=== PATIENT | male | born 1945 | race Caucasian/White ===

== ENCOUNTER 2016-08-31 11:42 | Day surgery (SDC) | payer OTHER, BC ==
[~2016-08-31] VITALS: Ht 172.7 cm; Wt 72.6 kg
[2016-08-31 12:24] VITALS: O2SAT 95
[2016-08-31] MEDS ORDERED: SEVOFLURANE 15 MIN GAS INH ONE (12:24)
[2016-08-31] MEDS ORDERED: METOCLOPRAMIDE HCL 10 MG/2 ML VIAL IVP ONE (12:24)
[2016-08-31] MEDS ORDERED: MIDAZOLAM HCL 5 MG/5 ML VIAL IVP ONE (12:24)
[2016-08-31] MEDS ORDERED: PROPOFOL 200MG/ 20ML VIAL (DIPRIVAN) IV ONE (12:24)
[2016-08-31] MEDS ORDERED: fentaNYL CITRATE/PF 100 MCG/2 ML AMP IVP ONE (12:24)
[2016-08-31 12:28] LABS: BASOPHILS % (AUTO) 0.6 % (0.0-2.0); EOSINOPHILS # (AUTO) 0.2 K/uL (0.0-0.4); HEMATOCRIT 45.9 % (36-54); HEMOGLOBIN 15.4 g/dL (14.0-18.0); LYMPHOCYTES # (AUTO) 1.9 K/uL (1.0-5.5); LYMPHOCYTES % (AUTO) 23.7 % (20.5-51.5); MEAN CORPUSCULAR HEMOGLOBIN 32 pg (27-31); MEAN CORPUSCULAR HGB CONC 34 % (32-36); MEAN CORPUSCULAR VOLUME 95 fL (79.0-98.0); MONOCYTES # (AUTO) 0.6 K/uL (0.0-1.0); NEUTROPHILS # (AUTO) 5.2 K/uL (1.8-7.7); NEUTROPHILS % (AUTO) 65.7 % (40.0-70.0); PLATELET COUNT (AUTO) 344 K/uL (130-430); RED BLOOD CELL COUNT(AUTO) 4.83 MIL/uL (4.2-6.2); RED CELL DISTRIBUTION WIDTH 11.6 % (9.0-15.0); WHITE BLOOD COUNT (AUTO) 7.9 K/uL (4.8-10.8)
[2016-08-31] MEDS ORDERED: LR 1,000 ML IV ONE (12:50)
[2016-08-31] MEDS ORDERED: NALBUPHINE HCL 10 MG/ML AMP IVP PRN (13:00)
[2016-08-31] MEDS ORDERED: fentaNYL CITRATE/PF 100 MCG/2 ML AMP IVP PRN (13:00)
[2016-08-31] MEDS ORDERED: ePHEDrine sulfate 50 MG/ML VIAL IVP PRN (13:00)
[2016-08-31] MEDS ORDERED: NALOXONE HCL 0.4 MG/ML AMP (NARCAN) IVP PRN (13:00)
[2016-08-31] MEDS ORDERED: DIPHENHYDRAMINE INJ 50 MG/ML VIAL IVP PRN (13:00)
[2016-08-31] MEDS ORDERED: ONDANSETRON HCL 4 MG/2 ML VIAL IVP PRN ×2 (13:00)
[2016-08-31 13:51] VITALS: BP 135/72; PULSE 63; RESP 18
== END 2016-08-31 14:25 | disposition home or self-care (01) ==
LOC: SDS 11:42
PROVIDERS: ATTEND Orthopaedic Surgery
DX: Z47.2 Encounter for removal of internal fixation device (principal); M54.5 Low back pain; E66.9 Obesity, unspecified
CPT/HCPCS: 20694; 36415; 85025; J2250; J2704; J2765; J3010; J7120

== ENCOUNTER 2022-09-03 10:00 | Emergency (ER) | payer OTHER, BC ==
[~2022-09-03] VITALS: Ht 172.7 cm; Wt 63.5 kg
[2022-09-03 10:13] VITALS: BP_SYST 96
--- NOTE | 2022-09-03 10:18 | NUR ---
Patient to ER bed 2 to gown for evaluation. Side rails up. Report given to SHANON WU.
--- NOTE | 2022-09-03 10:20 | NUR ---
PT BIB [facility] AWAKE AND ALERT AOX4. NO SOB OR DISTRESS. PT C/O HEAD ACHE, ABDOMINAL PAIN, N/V/D. PT STATES PAIN /. PT HAS HX OF BACK SX.
--- NOTE | 2022-09-03 10:21 | NUR ---
MD DR MONTERO AT BEDSIDE
[2022-09-03] MEDS ORDERED: NACL 0.9% 1,000 ML IV ONE (10:45)
[2022-09-03] MEDS ORDERED: ONDANSETRON HCL 4 MG/2 ML VIAL IVP ONE (11:00)
[2022-09-03] MEDS ORDERED: MORPHINE 4 MG INJ. 4 MG/ML VIAL IVP ONE (11:00)
--- NOTE | 2022-09-03 11:04 | NUR ---
PT TAKEN TO CT
[2022-09-03 11:12] LABS: BASOPHILS % (AUTO) 0.5 % (0.0-2.0); HEMOGLOBIN 14.5 g/dL (14.0-18.0); LYMPHOCYTES # (AUTO) 0.3 K/uL (1.0-5.5); LYMPHOCYTES % (AUTO) 3.7 % (20.5-51.5); MEAN CORPUSCULAR HEMOGLOBIN 32 pg (27-31); MEAN CORPUSCULAR HGB CONC 34 % (32-36); MEAN CORPUSCULAR VOLUME 96 fL (79.0-98.0); MONOCYTES # (AUTO) 0.4 K/uL (0.0-1.0); MONOCYTES % (AUTO) 5.4 % (1.7-9.3); NEUTROPHILS # (AUTO) 6.9 K/uL (1.8-7.7); NEUTROPHILS % (AUTO) 90.4 % (40.0-70.0); PLATELET COUNT (AUTO) 216 K/uL (130-430); RED BLOOD CELL COUNT(AUTO) 4.47 MIL/uL (4.2-6.2); RED CELL DISTRIBUTION WIDTH 13.5 % (9.0-15.0); WHITE BLOOD COUNT (AUTO) 7.7 K/uL (4.8-10.8)
[2022-09-03 11:36] LABS: ANION GAP 9 (5-15); CALCIUM 9.2 mg/dL (8.4-11.0); CHLORIDE 101 mmol/L (98-107); CREATININE 1.42 mg/dL (0.55-1.30); GLUCOSE 144 mg/dL (70-99); UREA NITROGEN, BLOOD 26 mg/dL (8-21)
[2022-09-03] MEDS ORDERED: ONDA8TAB60 PO (11:39)
[2022-09-03 11:40] LABS: ALANINE AMINOTRANSFERASE 27 U/L (12-78); ALBUMIN 3.7 g/dL (3.4-4.8); ASPARTATE AMINOTRANSFERASE 29 U/L (10-37); LIPASE 74 U/L (73-393); TOTAL BILIRUBIN 1.5 mg/dL (0.0-1.0)
[2022-09-03 12:14] VITALS: BP_SYST 135
--- NOTE | 2022-09-03 12:15 | NUR ---
Patient given written and verbal discharge instructions and verbalizes understanding. ER MD DR MONTERO discussed with patient the results and treatment provided. Patient in stable condition. ID arm band removed. IV catheter removed intact and dressing applied, no active bleeding. Rx of ZOFRAN given. Patient educated on pain management and to follow up with PMD. Pain Scale 2/10. Opportunity for questions provided and answered. Medication side effect fact sheet provided.
== END 2022-09-03 11:50 | disposition home or self-care (01) ==
LOC: SED 10:00
DX: R10.13 Epigastric pain (principal); R11.2 Nausea with vomiting, unspecified; R19.7 Diarrhea, unspecified; Z79.899 Other long term (current) drug therapy
CPT/HCPCS: 99285; 74176; 96374; 96375; 80053; 83690; 85025; 36415; 76376; J2405; J2270

== ENCOUNTER 2023-04-02 10:10 | Emergency (ER) | payer OTHER, BC ==
[~2023-04-02] VITALS: Ht 172.7 cm; Wt 64.9 kg
[~2023-04-02 10:10] MED LIST: ONDA8TAB60 PO
[2023-04-02 10:17] VITALS: BP_SYST 134; PULSE 74; RESP 18; TEMP 98.3; O2SAT 97
[2023-04-02] MEDS ORDERED: CEPH250C PO (10:29)
[2023-04-02] MEDS ORDERED: DIPHTH,PERTUSS(ACELL),TET VAC 0.5 ML VIAL (Tdap) I.M. ONE ×2 (10:45→10:47)
[2023-04-02 10:56] VITALS: BP_SYST 134; PULSE 74; RESP 18; TEMP 98.3; O2SAT 97
== END 2023-04-02 10:57 | disposition home or self-care (01) ==
LOC: SED 10:10
DX: S81.801A Unspecified open wound, right lower leg, initial encounter (principal); Z79.899 Other long term (current) drug therapy; X58.XXXA Exposure to other specified factors, initial encounter; Y93.89 Activity, other specified; Y92.89 Other specified places as the place of occurrence of the external cause; Y99.8 Other external cause status
CPT/HCPCS: 90715; 99283

== ENCOUNTER 2024-02-29 09:09 | Emergency (ER) | payer OTHER, BC ==
[~2024-02-29] VITALS: Ht 170.2 cm; Wt 65.8 kg
[~2024-02-29 09:09] MED LIST changes: +CEPH250C PO
[2024-02-29 09:19] VITALS: BP_SYST 137; PULSE 101; RESP 20; TEMP 100.2; O2SAT 100
[2024-02-29 10:07] LABS: BASOPHILS % (AUTO) 0.2 % (0.0-2.0); EOSINOPHILS % (AUTO) 0.1 % (0.0-4.0); HEMATOCRIT 39.2 % (36-54); HEMOGLOBIN 13.2 g/dL (14.0-18.0); LYMPHOCYTES # (AUTO) 0.2 K/uL (1.0-5.5); LYMPHOCYTES % (AUTO) 1.6 % (20.5-51.5); MEAN CORPUSCULAR HEMOGLOBIN 33 pg (27-31); MEAN CORPUSCULAR HGB CONC 34 % (32-36); MEAN CORPUSCULAR VOLUME 99 fL (79.0-98.0); MONOCYTES # (AUTO) 0.3 K/uL (0.0-1.0); NEUTROPHILS # (AUTO) 10.5 K/uL (1.8-7.7); NEUTROPHILS % (AUTO) 95.1 % (40.0-70.0); PLATELET COUNT (AUTO) 242 K/uL (130-430); RED BLOOD CELL COUNT(AUTO) 3.97 MIL/uL (4.2-6.2); RED CELL DISTRIBUTION WIDTH 12.1 % (9.0-15.0)
[2024-02-29] MEDS: NACL 0.9% 1,000 ML IV ONE (10:15)
[2024-02-29 10:18] LABS: ALANINE AMINOTRANSFERASE 23 U/L (12-78); ALBUMIN 3.6 g/dL (3.4-4.8); ANION GAP 6 (5-15); ASPARTATE AMINOTRANSFERASE 24 U/L (10-37); BILIRUBIN,DIRECT 0.2 mg/dL (0.0-0.3); CALCIUM 8.6 mg/dL (8.4-11.0); CARBON DIOXIDE 32 mmol/L (23-29); CHLORIDE 101 mmol/L (98-107); CREATININE 1.34 mg/dL (0.55-1.30); GLUCOSE 134 mg/dL (74-106); POTASSIUM 3.7 mmol/L (3.5-5.1); SODIUM SERUM 139 mmol/L (136-145); TOTAL BILIRUBIN 0.9 mg/dL (0.0-1.0); TOTAL PROTEIN, SERUM 6.9 g/dL (6.4-8.3); UREA NITROGEN, BLOOD 28 mg/dL (8-21)
[2024-02-29] MEDS: ACETAMINOPHEN 500 MG TABLET PO ONE (10:22)
[2024-02-29 11:30] VITALS: BP_SYST 128; PULSE 95; RESP 16; TEMP 99.6; O2SAT 98
[2024-02-29] MEDS ORDERED: ONDA-8 TL (22:06)
[2024-02-29] MEDS ORDERED: PRO40 PO (22:06)
== END 2024-02-29 11:30 | disposition home or self-care (01) ==
LOC: SED 09:09
DX: K52.9 Noninfective gastroenteritis and colitis, unspecified (principal); R11.10 Vomiting, unspecified; R10.9 Unspecified abdominal pain; Z79.899 Other long term (current) drug therapy; Z79.2 Long term (current) use of antibiotics
CPT/HCPCS: 36415; 80048; 80076; 85025; 99283

== ENCOUNTER 2024-02-29 18:43 | Emergency (ER) | payer OTHER, BC ==
[~2024-02-29] VITALS: Ht 172.7 cm; Wt 63.5 kg
[2024-02-29 18:55] VITALS: BP_SYST 145; PULSE 115; RESP 18; TEMP 98.3; O2SAT 94
[2024-02-29] MEDS: ONDANSETRON HCL 4 MG/2 ML VIAL IVP ONE (19:46)
[2024-02-29] MEDS: PANTOPRAZOLE SODIUM 40 MG/VIAL (PROTONIX) IVP ONE (19:47)
[2024-02-29] MEDS: KETOROLAC TROMETHAMINE 15 MG VIAL IVP ONE (19:47)
[2024-02-29] MEDS: NACL 0.9% 1,000 ML IV ONE (19:48)
[2024-02-29 20:00] LABS: BASOPHILS % (AUTO) 0.4 % (0.0-2.0); HEMATOCRIT 38.5 % (36-54); HEMOGLOBIN 13.2 g/dL (14.0-18.0); LYMPHOCYTES # (AUTO) 0.2 K/uL (1.0-5.5); LYMPHOCYTES % (AUTO) 2.5 % (20.5-51.5); MEAN CORPUSCULAR HEMOGLOBIN 34 pg (27-31); MEAN CORPUSCULAR HGB CONC 34 % (32-36); MEAN CORPUSCULAR VOLUME 98 fL (79.0-98.0); MONOCYTES # (AUTO) 0.5 K/uL (0.0-1.0); MONOCYTES % (AUTO) 5.1 % (1.7-9.3); NEUTROPHILS # (AUTO) 8.5 K/uL (1.8-7.7); PLATELET COUNT (AUTO) 233 K/uL (130-430); RED BLOOD CELL COUNT(AUTO) 3.94 MIL/uL (4.2-6.2); RED CELL DISTRIBUTION WIDTH 12.5 % (9.0-15.0); WHITE BLOOD COUNT (AUTO) 9.2 K/uL (4.8-10.8)
[2024-02-29 20:19] LABS: ALANINE AMINOTRANSFERASE 23 U/L (12-78); ALBUMIN 3.6 g/dL (3.4-4.8); ANION GAP 10 (5-15); ASPARTATE AMINOTRANSFERASE 25 U/L (10-37); BILIRUBIN,DIRECT 0.2 mg/dL (0.0-0.3); CALCIUM 8.6 mg/dL (8.4-11.0); CARBON DIOXIDE 28 mmol/L (23-29); CHLORIDE 102 mmol/L (98-107); CREATININE 1.35 mg/dL (0.55-1.30); GLUCOSE 157 mg/dL (74-106); LIPASE 35 U/L (16-77); POTASSIUM 3.5 mmol/L (3.5-5.1); SODIUM SERUM 140 mmol/L (136-145); TOTAL PROTEIN, SERUM 6.9 g/dL (6.4-8.3); UREA NITROGEN, BLOOD 31 mg/dL (8-21)
[2024-02-29] MEDS: NS 500 ML IV ONE (21:09)
[2024-02-29] MEDS ORDERED: PRO40 PO (22:06)
[2024-02-29] MEDS ORDERED: ONDA-8 TL (22:06)
[2024-02-29 22:23] VITALS: BP_SYST 127; PULSE 99; RESP 19; TEMP 98.7; O2SAT 95
== END 2024-02-29 22:23 | disposition home or self-care (01) ==
LOC: SED 18:43
DX: A05.9 Bacterial foodborne intoxication, unspecified (principal); K21.9 Gastro-esophageal reflux disease without esophagitis; R11.2 Nausea with vomiting, unspecified; I10 Essential (primary) hypertension; Z79.899 Other long term (current) drug therapy; Z79.2 Long term (current) use of antibiotics
CPT/HCPCS: 99284; 96374; 96375; 96361; 80076; 80048; 83690; 85025; 36415; J1885; J2405; J2470; J7030